=== PATIENT | female | born 2000 | race Caucasian/White ===

== ENCOUNTER 2019-02-10 23:21 | Emergency (ER) | payer OTHER ==
[2019-02-10 23:30] VITALS: BP 105/66
[2019-02-11] MEDS ORDERED: METOCLOPRAMIDE HCL INJ/PF 10 MG/2 ML SDV IV ONE (00:07)
--- NOTE | 2019-02-11 00:09 | ER Document Report ---
ED General - General Chief Complaint: Dizziness Stated Complaint: EYE PROBLEM Time Seen by Provider: 02/11/19 00:01 Primary Care Provider: YONI GOYAL PA-C [Primary Care Provider] - Follow up as needed Notes: Patient is a 19-year-old female that comes emergency department for chief complaint of a headache and to come concerns by her right eye. She states she has a throbbing headache with light sensitivity and nausea. She states she gets about 4 headaches a week. Headache is similar. She states she became concerned because she rubbed her eye and she looked at her finger and she thought she saw blood on her finger coming from her eye. She states her vision also seemed blurry. She states she subsequently had a panic attack but this resolved. She denies injury, focal numbness or weakness, fever/chills. She states she is not on any medications but she is undergoing an autoimmune work-up. Past Medical History - General Information source: Patient - Social History Smoking Status: Never Smoker Frequency of alcohol use: None Drug Abuse: None Lives with: Family Family History: Reviewed & Not Pertinent Neurological Medical History: Reports: Hx Migraine Psychiatric Medical History: Reports: Hx Anxiety - Immunizations Immunizations up to date: Yes Hx Diphtheria, Pertussis, Tetanus Vaccination: Yes Review of Systems - Review of Systems Constitutional: No symptoms reported EENT: See HPI Cardiovascular: No symptoms reported Respiratory: No symptoms reported Gastrointestinal: No symptoms reported Genitourinary: No symptoms reported Female Genitourinary: No symptoms reported Musculoskeletal: No symptoms reported Skin: No symptoms reported Hematologic/Lymphatic: No symptoms reported Neurological/Psychological: See HPI Physical Exam - Vital signs Vitals: Temp Pulse Resp BP Pulse Ox 98.1 F 78 17 105/66 100 02/10/19 23:29 02/10/19 23:29 02/10/19 23:29 02/10/19 23:29 02/10/19 23:29 - Notes Notes: GENERAL: Alert, interacts well. HEAD: Normocephalic, atraumatic. EYES: Pupils equal, round, and reactive to light. Extraocular movements intact. Sclera minimally injected in the right eye. No discharge. No superficial foreign body. Normal eyelids. ENT: Oral mucosa moist, tongue midline. Oropharynx unremarkable. Airway patent. Nares patent, no nasal septal hematoma, TM's intact. NECK: Full range of motion. Supple. Trachea midline. LUNGS: Clear to auscultation bilaterally, no wheezes, rales, or rhonchi. No respiratory distress. HEART: Regular rate and rhythm. No murmur ABDOMEN: Soft, non-tender. Non-distended. Bowel sounds present in all 4 quadrants. GENITOURINARY: Deferred EXTREMITIES: Moves all 4 extremities spontaneously. No edema, normal radial and dorsalis pedis pulses bilaterally. No cyanosis. BACK: no cervical, thoracic, lumbar midline tenderness. No saddle anesthesia, normal distal neurovascular exam. Moves all extremities in full range of motion. NEUROLOGICAL: Alert and oriented x3. Normal speech. Cranial nerves II through XII grossly intact. PSYCH: Speaks rapidly and somewhat anxiously SKIN: Warm, dry, normal turgor. No rashes or lesions noted. Course - Re-evaluation Re-evalutation: There is a tiny bit of injection in the right conjunctive a that is consistent with rubbing but there is no evidence of conjunctivitis, no current bleeding, no swelling of the eyelid. Normal EOMs, normal pupil, no obvious foreign body or injury. Patient wears glasses, visual acuity was not useful because she does not have them with her. She denies contacts. Initially patient received Reglan for her headache, she became very anxious with this, as result patient was given Benadryl. I went back in to perform a Clancy and slit-lamp exam and test the pressure in her eye because she states she felt like there was pressure in her eye and there was blood coming out of the eye even though I did not see evidence of this on exam. However when I went back and patient refused the exam. Patient states her headache is gone, pressure is gone, she denies any current symptoms and request discharge. I explained that I am concerned that there could be an abnormality with her iron I would prefer to examine this to clear her, she again refuses. She states she was rubbing it earlier and thinks this was the only thing that was the problem. She states now that her headache is gone she is ready to leave. She does states she will return if she worsens in any way, this was discussed. - Vital Signs Vital signs: Temp Pulse Resp BP Pulse Ox 98.1 F 78 17 105/66 100 02/10/19 23:29 02/10/19 23:29 02/10/19 23:29 02/10/19 23:29 02/10/19 23:29 Discharge - Discharge Clinical Impression: Right eye symptoms Headache Qualifiers: Headache type: unspecified Headache chronicity pattern: acute headache Intractability: not intractable Qualified Code(s): R51 - Headache Disposition: HOME, SELF-CARE Additional Instructions: Your evaluation, symptoms, and resolution with treatment are very suggestive of a migraine. We did not complete your eye examination, however the initial exam of your eye is reassuring. Follow-up with primary care for additional evaluation and management of headaches. Return if you worsen including returned or severe headache, vomiting, fever, loss of vision, returned pain in the eye, swelling of the eye/eyelid, or any other concerning or worsening symptoms. Forms: Treatment of Relative/Child Referrals: YONI GOYAL PA-C [Primary Care Provider] - Follow up as needed
[2019-02-11] MEDS ORDERED: TETRACAINE HCL 0.5% OPH SOLN 4 ML ONE (00:53)
[2019-02-11] MEDS ORDERED: DIPHENHYDRAMINE HCL 50 MG/ML VIAL IV ONE (01:07)
[2019-02-11] MEDS ORDERED: DIPHENHYDRAMINE HCL 50 MG/ML VIAL ONE (01:08)
== END 2019-02-11 01:25 | disposition home or self-care (01) ==
LOC: ER 23:21
DX: R42 Dizziness and giddiness (principal); R51 Headache; H53.141 Visual discomfort, right eye; H53.8 Other visual disturbances
CPT/HCPCS: 99283; J1200; J2765